=== PATIENT | male | born 1990 | race Caucasian/White ===

== ENCOUNTER 2022-09-26 06:59 | Emergency (ER) | payer OTHER ==
[~2022-09-26] VITALS: Ht 182.9 cm; Wt 100.7 kg
[2022-09-26] MEDS ORDERED: AMOX875T2 PO (10:20)
[2022-09-26] MEDS ORDERED: PRED20TA PO (10:20)
[2022-09-26] MEDS ORDERED: FLON1SPR NARES (10:20)
[2022-09-26 10:26] VITALS: BP 128/74
== END 2022-09-26 10:31 | disposition home or self-care (01) ==
LOC: M ED 06:59
DX: J01.90 Acute sinusitis, unspecified (principal); J04.0 Acute laryngitis

== ENCOUNTER 2022-10-13 12:10 | Emergency (ER) | payer OTHER ==
[~2022-10-13] VITALS: Ht 182.9 cm; Wt 100.0 kg
[~2022-10-13 12:10] MED LIST: AMOX875T2 PO; FLON1SPR NARES; PRED20TA PO
[2022-10-13 15:22] VITALS: BP 132/89
== END 2022-10-13 15:55 | disposition home or self-care (01) ==
LOC: M ED 12:10
DX: J04.0 Acute laryngitis (principal)

== ENCOUNTER → 2024-02-22 | Outpatient (CLI) | payer OTHER ==
[~2024-02-22] MED LIST changes: +ISOVUE-370 76% 100ML VIAL ONE
== END ==
LOC: M PLAIMG 08:35
PROVIDERS: ATTEND Physician Assistant
DX: R06.02 Shortness of breath (principal); R91.8 Other nonspecific abnormal finding of lung field
CPT/HCPCS: 71260; Q9967